=== PATIENT | female | born 2000 | race Hispanic/Latino ===

== ENCOUNTER 2020-04-13 18:53 | Emergency (ER) | payer BC ==
--- NOTE | 2020-04-13 19:37 | Emergency Department Report ---
ED Psych HPI - General Chief Complaint: Psych Stated Complaint: SUICIDAL THOUGHTS Time Seen by Provider: 04/13/20 19:05 Source: EMS Mode of arrival: Stretcher - History of Present Illness Initial Comments: 19-year-old female with history of anxiety, depression, borderline personality disorder, PTSD, presents to the ED for suicidal ideations. Patient is currently at [facility]. She reports she recently moved here from [place]. Patient states she has "been suicidal for a while" but has not acted on it. Patient states that she is attempting to come off of her lithium and Effexor and start taking Trintellix. Patient states they have been giving her the wrong dosages o r not having her medications ready. Today, she was upset because they did not have her lithium or Effexor. Patient states she became angry and "said some things I should not have said out of anger." Patient states someone reported that she verbalized that she wanted to kill herself, so she was placed on 1013 and sent to our ED. Patient states she is actually feeling much better now that she has moved to [place]. States while living in [place] she actually had no plan for suicide, now she says she does not actually have a plan, although 1013 states she had a plan of running into traffic or using a rope to hang herself. Patient denies any SI or HI at this time. Complaint: other -: This evening Associated Psychiatric Symptoms: suicidal ideation Quality: resolved prior to arrival Improves With: none Worsens With: none Associated Symptoms: denies other symptoms Treatments Prior to Arrival: placed on mental he ED Review of Systems ROS: Stated complaint: SUICIDAL THOUGHTS Other details as noted in HPI Comment: All other systems reviewed and negative Psychiatric: denies: auditory hallucinations, visual hallucinations, homicidal thoughts, suicidal thoughts ED Physical Exam - General Limitations: No Limitations General appearance: alert, in no apparent distress - Head Head exam: Present: atraumatic, normocephalic - Eye Eye exam: Present: normal appearance, EOMI - ENT ENT exam: Present: mucous membranes moist - Neck Neck exam: Present: normal inspection - Respiratory Respiratory exam: Present: normal lung sounds bilaterally. Absent: respiratory distress - Cardiovascular Cardiovascular Exam: Present: regular rate, normal rhythm - GI/Abdominal GI/Abdominal exam: Absent: distended - Extremities Exam Extremities exam: Present: normal inspection - Neurological Exam Neurological exam: Present: alert, oriented X3 - Psychiatric Psychiatric exam: Present: normal affect, normal mood - Skin Skin exam: Present: warm, dry, intact, normal color ED Course Vital Signs 04/13/20 19:45 Temperature 98.3 F Pulse Rate 92 H Respiratory 18 Rate Blood Pressure 122/77 [Left] O2 Sat by Pulse 100 Oximetry ED Medical Decision Making - Lab Data Result diagrams: 04/13/20 19:42 04/13/20 19:42 - Medical Decision Making 19-year-old female who reports expressing suicidal ideations after getting angry about medication errors at her detox facility. Patient states she has been suicidal for a while. Has not had any suicide attempts. She states she does not currently have a plan. Patient states she is actually feeling much better and is moving to [place] than she was while living in [place]. Patient seen and evaluated by mental health central office repairer, does not feel that patient meets inpatient criteria. 1013 rescinded. Will discharge patient back to [place] detox facility. Critical care attestation.: If time is entered above; I have spent that time in minutes in the direct care of this critically ill patient, excluding procedure time. ED Disposition Clinical Impression: Anger reaction Disposition: DC-01 TO HOME OR SELFCARE Is pt being admited?: No Condition: Stable Instructions: Managing Anger, Adult Referrals: PRIMARY CARE, [[facility] Care Provider[facility] Time of Disposition: 21:01
[2020-04-13 20:01] LABS: Basophils # (Auto) 0.1 K/mm3 (0.0-0.1); Basophils % (Auto) 0.5 % (0.0-1.8); Eosinophils # (Auto) 0.4 K/mm3 (0.0-0.4); Eosinophils % (Auto) 2.7 % (0.0-4.3); Hematocrit 39.6 % (30.3-42.9); Hemoglobin 13.8 gm/dl (10.1-14.3); Lymphocytes # (Auto) 3.3 K/mm3 (1.2-5.4); Lymphocytes % (Auto) 21.5 % (13.4-35.0); Mean Corpuscular HGB Conc 35 % (30-34); Mean Corpuscular Volume 88 fl (79-97); Monocytes # (Auto) 1.1 K/mm3 (0.0-0.8); Monocytes % (Auto) 6.9 % (0.0-7.3); Platelet Count 353 K/mm3 (140-440); Red Blood Count 4.51 M/mm3 (3.65-5.03); Red Cell Distribution Width 12.8 % (13.2-15.2)
[2020-04-13 20:14] LABS: Amphetamine Screen,Urine Negative; Benzodiazepines Screen,Urine Negative; Cannabinoid Screen,Urine Negative; Cocaine Screen,Urine Negative; Methadone Screen,Urine Negative; Opiate Screen,Urine Negative
[2020-04-13 20:15] LABS: Bacteria,Urine 1+ /HPF (Negative); Bilirubin,Urine NEG (Negative); Blood,Urine NEG (Negative); Color,Urine Yellow (Yellow); Mucus,Urine 1+ /HPF; Protein,Urine <15 mg/dL mg/dL (Negative); Urobilinogen,Urine < 2.0 mg/dL (<2.0)
[2020-04-13 20:23] LABS: Blood Urea Nitrogen 12 mg/dL (7-17); Calcium 9.7 mg/dL (8.4-10.2); Hemolysis Index 15
[2020-04-13 20:29] LABS: BUN/Creatinine Ratio 17
[2020-04-13 20:46] VITALS: BP 122/77
== END 2020-04-13 21:35 | disposition home or self-care (01) ==
LOC: ED 18:53 → EEVIPCON 18:53 → ED 21:35
DX: R45.4 Irritability and anger (principal); Z91.010 Allergy to peanuts
CPT/HCPCS: 36415; 80048; 80307; 80320; 81001; 84703; 85025; 99284; G0480